=== PATIENT | female | born 1970 | race Caucasian/White ===

== ENCOUNTER 2020-11-18 12:36 | Emergency (ER) | payer OTHER ==
[2020-11-18 12:46] VITALS: BP 112/77; PULSE 79; RESP 16; TEMP 98.2
--- NOTE | 2020-11-18 13:06 | ED ---
General Adult HPI - General Chief complaint: Fall Stated complaint: fall, lt shoulder pain Time Seen by Provider: 11/18/20 12:49 Source: patient Mode of arrival: wheelchair Limitations: no limitations - History of Present Illness Initial comments: Dictation was produced using [employer] dictation software. please excuse any grammatical, word or spelling errors. Chief Complaint: 50-year-old female with head injury, head pain, neck pain in left shoulder pain after fall this morning. History of Present Illness: Is a 50-year-old female she was stepping out of the slippery shower when she slipped and fell landing on her left shoulder. She did strike her head. Patient reports losing consciousness. She has significant pain over the left lateral clavicle. Patient has any numbness tingling paresthesias to the arms. She does complain of some mild neck pain. Patient has history of hysterectomy. The ROS documented in this emergency department record has been reviewed and confirmed by me. Those systems with pertinent positive or negative responses have been documented in the HPI. All other systems are other negative and/or n oncontributory. PHYSICAL EXAM: General Impression: Alert and oriented x3, not in acute distress HEENT: Normocephalic atraumatic, extra-ocular movements intact, pupils equal and reactive to light bilaterally, mucous membranes moist. Cardiovascular: Heart regular rate and rhythm Chest: Able to complete full sentences, no retractions, no tachypnea Abdomen: abdomen soft, non-tender, non-distended, no organomegaly Musculoskeletal: Pulses present and equal in all extremities, no peripheral edema, tenderness to palpation over the left inferior posterior cervical spine, exquisite tenderness to the left lateral clavicle Motor: no focal deficits noted Neurological: CN II-XII grossly intact, no focal motor or sensory deficits noted Skin: Intact with no visualized rashes Psych: Normal affect and mood ED course: 50-year-old female presents with head injury, neck injury and left shoulder injury after fall. Patient slipped, now the shower. Vital signs upon arrival are within acceptable limits. Computed tomography scan of the head and C-spine shows no acute processes. Shoulder x-ray shows acute nondisplaced fracture of the left clavicle chest x- ray is not acute. Clavicle x-ray shows acute fracture of the left clavicle. Patient reevaluated at bedside at 3:35 PM after given analgesia with improvement of symptoms. Patient placed in a left upper extremity sling. Patient given referral to orthopedic surgery. - Related Data Previous Rx's Medication Instructions Recorded HYDROcodone/APAP 5-325MG [[place] 1 tab PO Q6HR PRN 3 Days #12 tab 11/18/20 5-325] Allergies Allergy/AdvReac Type Severity Reaction Status Date / Time Penicillins Allergy Unknown Verified 11/18/20 12:38 Childhood Review of Systems ROS Statement: Those systems with pertinent positive or pertinent negative responses have been documented in the HPI. ROS Other: All systems not noted in ROS Statement are negative. Past Medical History Past Medical History: No Reported History History of Any Multi-Drug Resistant Organisms: None Reported Past Surgical History: Hysterectomy Past Psychological History: Depression Smoking Status: Never smoker Past Alcohol Use History: Occasional Past Drug Use History: None Reported General Exam Limitations: no limitations Course Vital Signs 11/18/20 12:39 Temperature 98.2 F Pulse Rate 79 Respiratory 16 Rate Blood Pressure 112/77 O2 Sat by Pulse 95 Oximetry Disposition Clinical Impression: Clavicle fracture Disposition: HOME SELF-CARE Condition: Good Instructions (If sedation given, give patient instructions): Clavicle Fracture (ED) Prescriptions: HYDROcodone/APAP 5-325MG [[place] 5-325] 1 tab PO Q6HR PRN 3 Days #12 tab PRN Reason: Severe Pain Is patient prescribed a controlled substance at d/c from ED?: Yes If prescribed controlled substance>3 days was MAPS reviewed?: Prescribed <3 Days Referrals: Carrington Mijares MD [STAFF PHYSICIAN] - 1-2 days
[2020-11-18] MEDS ORDERED: MORPHINE SULFATE 4 MG/ML SYRINGE IM STA (14:04)
--- NOTE | 2020-11-18 14:18 | CT ---
EXAMINATION TYPE: CT brain cspine wo con DATE OF EXAM: 11/18/2020 COMPARISON: None HISTORY: Slip and Fall this am (0600) CT DLP: 1465.5 mGycm Automated exposure control for dose reduction was used. Ventricles and sulci appear normal. There is no mass effect nor midline shift. There is no sign of in tracranial hemorrhage. The calvarium is intact. There is no evidence of cerebral edema. Cervical vertebra have normal alignment. There is degenerative disc space narrowing at C5-6 with spur ring of the endplates. Facet joints are intact. There is no evidence of a fracture. There is minimal encroachment on the spinal canal at C5-6. There is developmentally adequate canal. IMPRESSION: Cervical spondylotic changes at C5-6. No fracture. Negative CT scan of the brain.
[2020-11-18] MEDS ORDERED: MEPERIDINE 50 MG/ML SYRINGE IM PRN (14:49)
[2020-11-18] MEDS ORDERED: MEPERIDINE 50 MG/ML SYRINGE IM STA (14:53)
--- NOTE | 2020-11-18 15:13 | XR ---
EXAMINATION TYPE: XR shoulder complete LT DATE OF EXAM: 11/18/2020 COMPARISON: NONE HISTORY: Pain TECHNIQUE: 3 views FINDINGS: There is nondisplaced fracture mid shaft of the left clavicle. The glenohumeral joint is in tact. There are no pathologic calcifications. IMPRESSION: Acute nondisplaced fracture left clavicle.
--- NOTE | 2020-11-18 15:22 | XR ---
EXAMINATION TYPE: XR clavicle LT DATE OF EXAM: 11/18/2020 COMPARISON: NONE HISTORY: Pain TECHNIQUE: 2 views FINDINGS: There is fracture mid shaft of the left clavicle. There is normal alignment of the fragment s. There is 5 mm anterior displacement of the lateral fragment. IMPRESSION: Acute fracture of the left clavicle.
--- NOTE | 2020-11-18 15:22 | XR ---
EXAMINATION TYPE: XR chest 1V portable DATE OF EXAM: 11/18/2020 COMPARISON: NONE HISTORY: Pain TECHNIQUE: Single view FINDINGS: There is no heart failure nor confluent pneumonic infiltrate. Costophrenic angles are clear . There is left clavicle nondisplaced fracture. There is no pneumothorax. IMPRESSION: No active cardiopulmonary disease. Normal heart.
== END 2020-11-18 15:59 | disposition home or self-care (01) ==
LOC: EC 12:36
DX: S42.002A Fracture of unspecified part of left clavicle, initial encounter for closed fracture (principal); Z88.0 Allergy status to penicillin; W18.2XXA Fall in (into) shower or empty bathtub, initial encounter; Y93.E1 Activity, personal bathing and showering
CPT/HCPCS: 73030; 73000; 71045; 72125; 70450; 96372 ×2; 99284; J2270; J2175